=== PATIENT | female | born 1985 | race Hispanic/Latino ===

== ENCOUNTER 2024-02-17 10:29 | Emergency (ER) | payer SELFPAY ==
[2024-02-17] MEDS ORDERED: Lidocaine 1% (PF) 30 ML VIAL ONE (10:51)
== END 2024-02-17 12:21 | disposition home or self-care (01) ==
LOC: BURERS 10:29
DX: S61.451A Open bite of right hand, initial encounter (principal); S21.111A Laceration without foreign body of right front wall of thorax without penetration into thoracic cavity, initial encounter; S01.81XA Laceration without foreign body of other part of head, initial encounter; S41.111A Laceration without foreign body of right upper arm, initial encounter; I10 Essential (primary) hypertension; W54.0XXA Bitten by dog, initial encounter
CPT/HCPCS: 12013; 99283; J2001